=== PATIENT | female | born 1995 | race Caucasian/White ===

== ENCOUNTER 2016-12-09 20:47 | Inpatient (IN) | payer MEDICAID ==
[2016-12-09] MEDS ORDERED: Nalbuphine 10 MG/1 ML Vial IVPUSH PRN (21:52)
[2016-12-09] MEDS ORDERED: Oxytocin 10 Units/1 ML SDV IM ONE (21:52)
[2016-12-09] MEDS ORDERED: Ondansetron 4 MG/2 ML SDV IV PRN (21:52)
[2016-12-09] MEDS ORDERED: fentaNYL 100 MCG/2 ML SDV IVPUSH PRN (21:52)
[2016-12-09] MEDS ORDERED: Lactated Ringers 500 ML IV ONE (21:52)
[2016-12-09] MEDS ORDERED: Methylergonovine 0.2 MG/1 ML Amp IM PRN (21:52)
[2016-12-09] MEDS ORDERED: Misoprostol 400 MCG (4 X 100 MCG TAB) RECTAL PRN (21:52)
[2016-12-09] MEDS ORDERED: Acetaminophen 325 MG Tab PO PRN (21:52)
[2016-12-09] MEDS ORDERED: Carboprost Tromethamine 250 MCG/1 ML Amp IM PRN (21:52)
[2016-12-09] MEDS ORDERED: Lidocaine 1% 30 ML SDV INJECT PRN (21:52)
[2016-12-09] MEDS ORDERED: Sodium Chloride 0.9% 10 ML Syringe FLUSH PRN (21:52)
[2016-12-09] MEDS ORDERED: Lactated Ringers 1,000 ML IV SCH (22:00)
[2016-12-09] MEDS ORDERED: Oxytocin/Normal Saline 30 UNIT/500 ML BAG IV SCH (22:00)
--- NOTE | 2016-12-09 22:06 | PCM.LDHP ---
L&D History of Present Illness - General Date of Service: 12/09/16 Admit Problem/Dx: Patient Status Order with Admit Dx/Problem 12/09/16 21:52 Patient Status [ADT] Routine Admission Diagnosis/Problem Admission Diagnosis/Problem care Source of Information: Patient History Limitations: Reports: No Limitations - Related Data Allergies/Adverse Reactions: Allergies Allergy/AdvReac Type Severity Reaction Status Date / Time albuterol Allergy Dizziness Verified 11/23/16 21:39 benzoyl peroxide Allergy Itching Verified 11/23/16 21:39 fluoxetine [From Prozac] Allergy Tremors Verified 11/23/16 21:39 milk Allergy Indigestion Verified 11/23/16 21:39 penicillin Allergy Other Verified 11/13/16 17:45 Home Medications: Home Meds Pnv95/Iron Fum/Folic Acid [ Caplet] 1 tab PO DAILY 07/08/16 [History] Budesonide/Formoterol Fumarate [Symbicort 160-4.5 Mcg Inhaler] 1 puff IH ASDIRECTED PRN 11/23/16 [History] Levalbuterol Tartrate [Xopenex Hfa] 45 mcg INH ASDIRECTED PRN 11/23/16 [History] hydrOXYzine Pamoate [Hydroxyzine Pamoate] 25 mg PO Q6HR PRN 11/23/16 [History] Past Medical History - Past Health History Medical/Surgical History: Denies Medical/Surgical History HEENT History: Reports: Allergic Rhinitis Other HEENT History: due to animal hair and dander Respiratory History: Reports: Asthma Genitourinary History: Reports: UTI, Recurrent, 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) Other Genitourinary History: hx bv 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: , 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 , 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) Other OB/BYN History: pre term labor Psychiatric History: Reports: OCD, Panic Attack, 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) 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 Dermatologic History: Reports: 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) Other Dermatologic History: alopecia - Infectious Disease History Infectious Disease History: Reports: Chicken Pox - Past Surgical History HEENT Surgical History: Reports: None Respiratory Surgical History: Reports: None Female Surgical History: Reports: None Social & Family History - Family History Family Medical History: Noncontributory - Tobacco Use Smoking Status *Q: Never Smoker Second Hand Smoke Exposure: No - Caffeine Use Caffeine Use: Reports: None - Recreational Drug Use Recreational Drug Use: No L&D Exam - Vital Signs Weight: 68.946 kg - Problem List (1) care in third trimester SNOMED Code(s): 304705741, 27038217, 27283234, 258325856, [id number] ICD Code: Z34.93 - ENCNTR FOR SUPRVSN OF NORMAL PREG, UNSP, THIRD TRIMESTER Status: Acute Current Visit: Yes Problem List Initiated/Reviewed/Updated: Yes Orders Last 24hrs: Active Orders 24 hr Category Date Time Status Patient Status [ADT] Routine ADT 12/09/16 21:52 Ordered Communication Order [RC] ASDIRECTED Care 12/09/16 21:52 Ordered Heart Tones [RC] PER UNIT ROUTINE Care 12/09/16 21:52 Ordered Notify Provider Vital Signs OB [RC] ASDIRECTED Care 12/09/16 21:52 Ordered Notify Provider [RC] PRN Care 12/09/16 21:52 Ordered Pump Management, Intrathecal [RC] ASDIRECTED Care 12/09/16 21:52 Ordered Up ad Hannah [RC] ASDIRECTED Care 12/09/16 21:52 Ordered Vital Signs [RC] PER UNIT ROUTINE Care 12/09/16 21:52 Ordered Clear Liquid Diet [DIET] Diet 12/09/16 Breakfast Ordered CBC W/O DIFF,HEMOGRAM [HEME] Routine Lab 12/09/16 21:42 Ordered Acetaminophen [Tylenol] Med 12/09/16 21:52 Ordered 650 mg PO Q4H PRN Carboprost Tromethamine [Hemabate DS] Med 12/09/16 21:52 Ordered 250 mcg IM ASDIRECTED PRN Lactated Ringers @ 125 MLS/HR(1000ml) Med 12/09/16 22:00 Ordered Lactated Ringers [Ringers, Lactated] 1,000 ml IV ASDIRECTED Lactated Ringers [Ringers, Lactated] 500 ml Med 12/09/16 21:52 Ordered IV .BOLUS Lidocaine 1% [Xylocaine-MPF 1%] Med 12/09/16 21:52 Ordered 10 ml INJECT ASDIRECTED PRN Methylergonovine [Methergine] Med 12/09/16 21:52 Ordered 0.2 mg IM ASDIRECTED PRN Misoprostol [Cytotec] Med 12/09/16 21:52 Ordered 800 mcg RECTAL ASDIRECTED PRN Nalbuphine [Nubain] Med 12/09/16 21:52 Ordered 10 mg IVPUSH Q3H PRN Ondansetron [Zofran] Med 12/09/16 21:52 Ordered 4 mg IV Q4H PRN Oxytocin 30 Units in NS @ 2 MUNITS/MIN(500ml) Med 12/09/16 22:00 Ordered Oxytocin/Normal Saline [Pitocin in NS 30 UNIT/500 ML] 30 unit in 500 ml IV TITRATE Oxytocin [Pitocin] Med 12/09/16 21:52 Once 10 unit IM ONETIME ONE Sodium Chloride 0.9% [Saline Flush] Med 12/09/16 21:52 Ordered 10 ml FLUSH ASDIRECTED PRN fentaNYL [Sublimaze] Med 12/09/16 21:52 Ordered 50 mcg IVPUSH Q1H PRN Saline Lock Insert [OM.PC] Routine Oth 12/09/16 21:52 Ordered Resuscitation Status Routine Resus Stat 12/09/16 21:52 Ordered Medication Orders Acetaminophen (Tylenol) 650 mg PO Q4H PRN PRN Reason: Pain (Mild 1-3) and fever Carboprost Tromethamine (Hemabate Ds) 250 mcg IM ASDIRECTED PRN PRN Reason: HEMORRHAGE Lactated Ringer's (Ringers, Lactated) 500 mls @ 999 mls/hr IV .BOLUS ONE Stop: 12/09/16 22:22 Lactated Ringer's (Ringers, Lactated) 1,000 mls @ 125 mls/hr IV ASDIRECTED ANTONIA Lidocaine HCl (Xylocaine-Mpf 1%) 10 ml INJECT ASDIRECTED PRN PRN Reason: Perineal Repair Methylergonovine Maleate (Methergine) 0.2 mg IM ASDIRECTED PRN PRN Reason: Hemorrhage Misoprostol (Cytotec) 800 mcg RECTAL ASDIRECTED PRN PRN Reason: Hemorrhage Nalbuphine HCl (Nubain) 10 mg IVPUSH Q3H PRN PRN Reason: Pain (moderate 4-6) Ondansetron HCl (Zofran) 4 mg IV Q4H PRN PRN Reason: Nausea/Vomiting Oxytocin (Pitocin) 10 unit IM ONETIME ONE Stop: 12/09/16 21:53 Sodium Chloride (Saline Flush) 10 ml FLUSH ASDIRECTED PRN PRN Reason: Keep Vein Open
--- NOTE | 2016-12-09 22:17 | PCM.LDHP ---
L&D History of Present Illness - General Date of Service: 12/09/16 Admit Problem/Dx: Patient Status Order with Admit Dx/Problem 12/09/16 21:52 Patient Status [ADT] Routine Admission Diagnosis/Problem Admission Diagnosis/Problem care Source of Information: Patient History Limitations: Reports: No Limitations - History of Present Illness Introduction:: 21-year-old at 38w3d presents with leaking of fluid. Patient was at [facility] less than an hour prior to admission and noted a small gush of fluid. She continues to leak. She also feels that her contractions have increased in frequency. They are not too painful at this time. She has had some blood- tinged discharge as well but no overt bleeding. Baby has been active. No new headaches or vision changes. - Related Data Allergies/Adverse Reactions: Allergies Allergy/AdvReac Type Severity Reaction Status Date / Time albuterol Allergy Dizziness Verified 11/23/16 21:39 benzoyl peroxide Allergy Itching Verified 11/23/16 21:39 fluoxetine [From Prozac] Allergy Tremors Verified 11/23/16 21:39 milk Allergy Indigestion Verified 11/23/16 21:39 penicillin Allergy Other Verified 11/13/16 17:45 Home Medications: Home Meds Pnv95/Iron Fum/Folic Acid [ Caplet] 1 tab PO DAILY 07/08/16 [History] Budesonide/Formoterol Fumarate [Symbicort 160-4.5 Mcg Inhaler] 1 puff IH ASDIRECTED PRN 11/23/16 [History] Levalbuterol Tartrate [Xopenex Hfa] 45 mcg INH ASDIRECTED PRN 11/23/16 [History] hydrOXYzine Pamoate [Hydroxyzine Pamoate] 25 mg PO Q6HR PRN 11/23/16 [History] Past Medical History - Past Health History Medical/Surgical History: Denies Medical/Surgical History HEENT History: Reports: Allergic Rhinitis Other HEENT History: due to animal hair and dander Respiratory History: Reports: Asthma Genitourinary History: Reports: UTI, Recurrent, 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) Other Genitourinary History: 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: , 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 , 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) Other OB/BYN History: pre term labor Psychiatric History: Reports: OCD, Panic Attack, 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) 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 Dermatologic History: Reports: 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) Other Dermatologic History: alopecia - Infectious Disease History Infectious Disease History: Reports: Chicken Pox - Past Surgical History HEENT Surgical History: Reports: None Respiratory Surgical History: Reports: None Female Surgical History: Reports: None Social & Family History - Family History Family Medical History: Noncontributory - Tobacco Use Smoking Status *Q: Never Smoker Second Hand Smoke Exposure: No - Caffeine Use Caffeine Use: Reports: None - Recreational Drug Use Recreational Drug Use: No H&P Review of Systems - Review of Systems: Review Of Systems: See Below General: Reports: No Symptoms HEENT: Reports: No Symptoms Pulmonary: Reports: No Symptoms Cardiovascular: Reports: No Symptoms Gastrointestinal: Reports: No Symptoms Genitourinary: Reports: No Symptoms Musculoskeletal: Reports: No Symptoms L&D Exam - Exam Exam: See Below - Vital Signs Weight: 68.946 kg - OB Specific Contraction Duration (sec): 45 Contraction Frequency (min): 1-2 Contraction Intensity: Mild Movement: Active Heart Tones: Present Heart Tones per Min: 130 Heart Rate (FHR) Variability: Moderate (6-25 bmp) Presentation: Vertex - King Score King Score Cervix Position: Anterior King Score Consistency: Soft King Score Effacement: >80% King Score Dilation: > 5 cm King Score Infant's Station: -1 ,0 King Score Total: 12 - Exam General: Alert, Oriented HEENT: Conjunctiva Clear, Mucosa Moist & [place], Posterior Pharynx Clear Lungs: Clear to Auscultation, Normal Respiratory Effort Cardiovascular: Regular Rate, Regular Rhythm. No: Systolic Murmur, Diastolic Murmur Genitourinary: Normal external exam Extremities: Normal Inspection. No: Edema Skin: Warm, Dry, Intact Psychiatric: Alert - Patient Data Lab Results Last 24 hrs: Laboratory Results - last 24 hr 12/09/16 Range/Units 22:00 WBC 13.5 H (5.0-10.0) 10^3/uL RBC 3.78 L (4.2-5.4) 10^6/uL Hgb 11.6 L (12.0-16.0) g/dL Hct 34.8 L (37.0-47.0) % MCV 92.1 (80-100) fL MCH 30.7 (27.0-34.0) pg MCHC 33.3 (33.0-35.0) g/dL Plt Count 204 (150-450) 10^3/uL Result Diagrams: 12/09/16 22:00 - Problem List (1) care in third trimester SNOMED Code(s): 178166163, 26694386, 62348441, 755445799, 472972201 ICD Code: Z34.93 - ENCNTR FOR SUPRVSN OF NORMAL PREG, UNSP, THIRD TRIMESTER Status: Acute Current Visit: Yes Problem List Initiated/Reviewed/Updated: Yes Orders Last 24hrs: Active Orders 24 hr Category Date Time Status Patient Status [ADT] Routine ADT 12/09/16 21:52 Active Communication Order [RC] ASDIRECTED Care 12/09/16 21:52 Active Heart Tones [RC] PER UNIT ROUTINE Care 12/09/16 21:52 Active Notify Provider Vital Signs OB [RC] ASDIRECTED Care 12/09/16 21:52 Active Notify Provider [RC] PRN Care 12/09/16 21:52 Active Pump Management, Intrathecal [RC] ASDIRECTED Care 12/09/16 21:52 Active Up ad Hannah [RC] ASDIRECTED Care 12/09/16 21:52 Active Vital Signs [RC] PER UNIT ROUTINE Care 12/09/16 21:52 Active Clear Liquid Diet [DIET] Diet 12/09/16 Breakfast Active Acetaminophen [Tylenol] Med 12/09/16 21:52 Active 650 mg PO Q4H PRN Carboprost Tromethamine [Hemabate DS] Med 12/09/16 21:52 Active 250 mcg IM ASDIRECTED PRN Lactated Ringers [Ringers, Lactated] 1,000 ml Med 12/09/16 22:00 Active IV ASDIRECTED Lactated Ringers [Ringers, Lactated] 500 ml Med 12/09/16 21:52 Active IV .BOLUS Lidocaine 1% [Xylocaine-MPF 1%] Med 12/09/16 21:52 Active 10 ml INJECT ASDIRECTED PRN Methylergonovine [Methergine] Med 12/09/16 21:52 Active 0.2 mg IM ASDIRECTED PRN Misoprostol [Cytotec] Med 12/09/16 21:52 Active 800 mcg RECTAL ASDIRECTED PRN Nalbuphine [Nubain] Med 12/09/16 21:52 Active 10 mg IVPUSH Q3H PRN Ondansetron [Zofran] Med 12/09/16 21:52 Active 4 mg IV Q4H PRN Oxytocin/Normal Saline [Pitocin in NS 30 UNIT/500 ML] Med 12/09/16 22:00 Active 30 unit in 500 ml IV TITRATE Sodium Chloride 0.9% [Saline Flush] Med 12/09/16 21:52 Active 10 ml FLUSH ASDIRECTED PRN fentaNYL [Sublimaze] Med 12/09/16 21:52 Active 50 mcg IVPUSH Q1H PRN Saline Lock Insert [OM.PC] Routine Oth 12/09/16 21:52 Ordered Resuscitation Status Routine Resus Stat 12/09/16 21:52 Ordered Medication Orders Acetaminophen (Tylenol) 650 mg PO Q4H PRN PRN Reason: Pain (Mild 1-3) and fever Carboprost Tromethamine (Hemabate Ds) 250 mcg IM ASDIRECTED PRN PRN Reason: HEMORRHAGE Fentanyl (Sublimaze) 50 mcg IVPUSH Q1H PRN PRN Reason: Pain (moderate 4-6) Lactated Ringer's (Ringers, Lactated) 500 mls @ 999 mls/hr IV .BOLUS ONE Stop: 12/09/16 22:22 Lactated Ringer's (Ringers, Lactated) 1,000 mls @ 125 mls/hr IV ASDIRECTED ANTONIA Oxytocin/Sodium Chloride (Pitocin In Ns 30 Unit/500 Ml) 30 unit in 500 mls @ 2 mls/hr IV TITRATE ANTONIA; 2 MUNITS/MIN PRN Reason: Protocol Lidocaine HCl (Xylocaine-Mpf 1%) 10 ml INJECT ASDIRECTED PRN PRN Reason: Perineal Repair Methylergonovine Maleate (Methergine) 0.2 mg IM ASDIRECTED PRN PRN Reason: Hemorrhage Misoprostol (Cytotec) 800 mcg RECTAL ASDIRECTED PRN PRN Reason: Hemorrhage Nalbuphine HCl (Nubain) 10 mg IVPUSH Q3H PRN PRN Reason: Pain (moderate 4-6) Ondansetron HCl (Zofran) 4 mg IV Q4H PRN PRN Reason: Nausea/Vomiting Sodium Chloride (Saline Flush) 10 ml FLUSH ASDIRECTED PRN PRN Reason: Keep Vein Open Assessment/Plan Comment:: 21-year-old at 38w3d with active labor and SROM 1. Admit to L&D 2. Initiate routine intrapartum orders 3. Patient does NOT desire an intratheca. 4. Patient's cervix was assessed by me. A bag was felt and AROM'd for small clear fluid. 5. Expectant management. Anticipate Geeta Ambriz MD
[2016-12-09] MEDS ORDERED: Docusate Sodium 100 MG Cap PO PRN (23:40)
[2016-12-09] MEDS ORDERED: Benzocaine/Menthol 20%-0.5% Spray 56 GM Canister TOP PRN (23:40)
[2016-12-09] MEDS ORDERED: Simethicone 80 MG Tab.Chew PO PRN (23:40)
--- NOTE | 2016-12-09 23:48 | PCM.DEL ---
L & D Note - General Info Date of Service: 12/09/16 Mother's Due Date: 12/19/16 - Delivery Note Labor: spontaneous, augmented by ARM Delivery Outcome: Livebirth Delivery Method: Spontaneous Vaginal Delivery Presentation: Vertex Nuchal Cord: None Anesthesia Type: None Amniotic Fluid Description: Clear Episiotomy Type: None Laceration: none Placenta: intact, spontaneous Cord: 3 vessels Estimated Blood Loss: 225 Resuscitation Needed: No : Stimulated, Warmed Score 1 min: 8 Score 5 min: 9 Delivery Comments (Free Text/Narrative):: 21-year-old now at 38w3d gestation presented with leaking of amniotic fluid and increased contractions. She was admitted and AROM was performed around 2210. Patient rapidly progressed to complete dilation. She was in the tub and was quickly moved from the tub to the bed. She was involuntarily pushing. The baby delivered as I was entering the labor room. Female infant was placed on mother's chest and warmed/stimulated. Apgars were 8 and 9 at 1 and 5 minutes respectively. The cord was cut and clamped. The placenta delivered spontaneously about 5 minutes later. Initially, there was some brisk bleeding from the uterus. Vigorous uterine massage and intiation of pitocin slowed this bleeding to an appropriate level. Perineum was intact. Patient tolerated the procedure well, and there were no immediately complications. Geeta Ambriz MD - Patient Data Weight - most recent: 68.946 kg Lab Results last 24 hrs: Laboratory Results - last 24 hr 12/09/16 Range/Units 22:00 WBC 13.5 H (5.0-10.0) 10^3/uL RBC 3.78 L (4.2-5.4) 10^6/uL Hgb 11.6 L (12.0-16.0) g/dL Hct 34.8 L (37.0-47.0) % MCV 92.1 (80-100) fL MCH 30.7 (27.0-34.0) pg MCHC 33.3 (33.0-35.0) g/dL Plt Count 204 (150-450) 10^3/uL Med Orders - Current: Current Medications Acetaminophen (Tylenol) 650 mg PO Q4H PRN PRN Reason: Pain (Mild 1-3) and fever Carboprost Tromethamine (Hemabate Ds) 250 mcg IM ASDIRECTED PRN PRN Reason: HEMORRHAGE Oxytocin/Sodium Chloride (Pitocin In Ns 30 Unit/500 Ml) 30 unit in 500 mls @ 2 mls/hr IV TITRATE ANTONIA; 2 MUNITS/MIN PRN Reason: Protocol Methylergonovine Maleate (Methergine) 0.2 mg IM ASDIRECTED PRN PRN Reason: Hemorrhage Misoprostol (Cytotec) 800 mcg RECTAL ASDIRECTED PRN PRN Reason: Hemorrhage Ondansetron HCl (Zofran) 4 mg IV Q4H PRN PRN Reason: Nausea/Vomiting Sodium Chloride (Saline Flush) 10 ml FLUSH ASDIRECTED PRN PRN Reason: Keep Vein Open Discontinued Medications Fentanyl (Sublimaze) 50 mcg IVPUSH Q1H PRN PRN Reason: Pain (moderate 4-6) Lactated Ringer's (Ringers, Lactated) 500 mls @ 999 mls/hr IV .BOLUS ONE Stop: 12/09/16 22:22 Lactated Ringer's (Ringers, Lactated) 1,000 mls @ 125 mls/hr IV ASDIRECTED ANTONIA Lidocaine HCl (Xylocaine-Mpf 1%) 10 ml INJECT ASDIRECTED PRN PRN Reason: Perineal Repair Nalbuphine HCl (Nubain) 10 mg IVPUSH Q3H PRN PRN Reason: Pain (moderate 4-6) Oxytocin (Pitocin) 10 unit IM ONETIME ONE Stop: 12/09/16 21:53 - Problem List & Annotations (1) care in third trimester SNOMED Code(s): 965910128, 54771888, 03204143, 411053709, 044874926 Code(s): Z34.93 - ENCNTR FOR SUPRVSN OF NORMAL PREG, UNSP, THIRD TRIMESTER Status: Acute Current Visit: Yes (2) (normal spontaneous vaginal delivery) SNOMED Code(s): 86203627 Code(s): O80 - ENCOUNTER FOR FULL-TERM UNCOMPLICATED DELIVERY Status: Acute Current Visit: Yes (3) Precipitous delivery, delivered (current hospitalization) SNOMED Code(s): 296509457 Code(s): O62.3 - PRECIPITATE LABOR Status: Acute Current Visit: Yes - Problem List Review Problem List Initiated/Reviewed/Updated: Yes - My Orders Last 24 Hours: My Active Orders 12/09/16 21:52 Patient Status [ADT] Routine Notify Provider Vital Signs OB [RC] ASDIRECTED Pump Management, Intrathecal [RC] ASDIRECTED Vital Signs [RC] 08,20 Acetaminophen [Tylenol] 650 mg PO Q4H PRN Carboprost Tromethamine [Hemabate DS] 250 mcg IM ASDIRECTED PRN Methylergonovine [Methergine] 0.2 mg IM ASDIRECTED PRN Misoprostol [Cytotec] 800 mcg RECTAL ASDIRECTED PRN Ondansetron [Zofran] 4 mg IV Q4H PRN Sodium Chloride 0.9% [Saline Flush] 10 ml FLUSH ASDIRECTED PRN Saline Lock Insert [OM.PC] Routine Resuscitation Status Routine 12/09/16 22:00 Oxytocin/Normal Saline [Pitocin in NS 30 UNIT/500 ML] 30 unit in 500 ml IV TITRATE 12/09/16 23:40 Up ad Hannah [RC] ASDIRECTED Vital Signs [RC] PFP Consult to Health Information Technician [CONS] Routine Benzocaine/Menthol [Dermoplast Pain Relief [place]] See Dose Instructions TOP Q4H PRN Docusate Sodium [Colace] 100 mg PO BID PRN Ibuprofen [Motrin] 800 mg PO Q8H PRN Simethicone 80 mg PO Q4H PRN Assess Lochia [WOMSER] Per Unit Routine Assess Uterine Involution [WOMSER] Per Unit Routine Breast Pump [WOMSER] Per Unit Routine Ice Therapy [OM.PC] Per Unit Routine Perineal Care [OM.PC] Per Unit Routine Sitz Bath [OM.PC] Per Unit Routine 12/09/16 Breakfast Regular Diet [DIET] 12/10/16 09:00 Vit with Ca/FA/Iron [ Plus Iron] 1 each PO DAILY - Assessment Assessment:: 21-year-old now status post precipitous at 38w3d - Plan Plan:: 1. Initiate routine cares 2. Plans to breastfeed-- consult placed 3. Anticipate discharge 12/11/16 Geeta Ambriz MD
[2016-12-10] MEDS: Ibuprofen 800 MG Tab PO PRN ×2 (01:59→09:38)
[2016-12-10] MEDS: Prenatal Multivitamin with Calcium/Folic Acid/Iron Tab PO SCH (09:38)
--- NOTE | 2016-12-10 17:12 | PCM.PNPP ---
- General Info Date of Service: 12/10/16 Subjective Update: 21-year-old now day #1 status post precipitous normal spontaneous vaginal delivery. Patient is doing well. She complains of some perineal discomfort but is otherwise doing well. Bleeding is slowing down. She is tolerating a general diet. She is ambulatory without difficulty. She is voiding. She has not had a bowel movement. No fevers or chills. She is breast- feeding. No concerns today. Patient did have some increased bleeding overnight approximately 2 hours after delivery. IV Pitocin was increased and prolonged for an extra hour. Her bleeding was appropriate after that. No increased bleeding since that time. Functional Status: Reports: pain controlled, tolerating diet, ambulating, urinating - Review of Systems General: Reports: No Symptoms HEENT: Reports: no symptoms Pulmonary: Reports: no symptoms Cardiovascular: Reports: No Symptoms Gastrointestinal: Reports: No symptoms Genitourinary: Reports: pain Musculoskeletal: Reports: no symptoms Skin: Reports: no symptoms Neurological: Reports: No Symptoms - General Info Date of Service: 12/17/16 - Patient Data Vital Signs - most recent: Last Vital Signs Temp 36.4 C 12/10/16 08:00 Pulse 76 12/10/16 08:00 Resp 18 12/10/16 08:00 BP 113/56 L 12/10/16 08:00 Pulse Ox 96 12/10/16 08:00 Weight - most recent: 68.946 kg I&O - last 24 hours: Intake & Output 12/10/16 12/10/16 12/10/16 06:59 14:59 22:59 Intake Total 80 Balance 80 Lab Results - last 24 hrs: Laboratory Results - last 24 hr 12/09/16 Range/Units 22:00 WBC 13.5 H (5.0-10.0) 10^3/uL RBC 3.78 L (4.2-5.4) 10^6/uL Hgb 11.6 L (12.0-16.0) g/dL Hct 34.8 L (37.0-47.0) % MCV 92.1 (80-100) fL MCH 30.7 (27.0-34.0) pg MCHC 33.3 (33.0-35.0) g/dL Plt Count 204 (150-450) 10^3/uL Med Orders - Current: Current Medications Acetaminophen (Tylenol) 650 mg PO Q4H PRN PRN Reason: Pain (Mild 1-3) and fever Benzocaine/Menthol (Dermoplast Pain Relief [place]) 0 gm TOP Q4H PRN PRN Reason: Perineal comfort measures Carboprost Tromethamine (Hemabate Ds) 250 mcg IM ASDIRECTED PRN PRN Reason: HEMORRHAGE Docusate Sodium (Colace) 100 mg PO BID PRN PRN Reason: Constipation Last Admin: 12/10/16 09:38 Dose: 100 mg Oxytocin/Sodium Chloride (Pitocin In Ns 30 Unit/500 Ml) 30 unit in 500 mls @ 2 mls/hr IV TITRATE ANTONIA; 2 MUNITS/MIN PRN Reason: Protocol Last Titration: 12/10/16 02:45 Dose: Infused Ibuprofen (Motrin) 800 mg PO Q8H PRN PRN Reason: Mild Pain or Fever Last Admin: 12/10/16 09:38 Dose: 800 mg Methylergonovine Maleate (Methergine) 0.2 mg IM ASDIRECTED PRN PRN Reason: Hemorrhage Misoprostol (Cytotec) 800 mcg RECTAL ASDIRECTED PRN PRN Reason: Hemorrhage Ondansetron HCl (Zofran) 4 mg IV Q4H PRN PRN Reason: Nausea/Vomiting Prenat Multivit/[place]ole/Iron/Folic Ac ( Plus Iron) 1 each PO DAILY ANTONIA Last Admin: 12/10/16 09:38 Dose: 1 each Simethicone (Simethicone) 80 mg PO Q4H PRN PRN Reason: Gas Sodium Chloride (Saline Flush) 10 ml FLUSH ASDIRECTED PRN PRN Reason: Keep Vein Open Discontinued Medications Fentanyl (Sublimaze) 50 mcg IVPUSH Q1H PRN PRN Reason: Pain (moderate 4-6) Lactated Ringer's (Ringers, Lactated) 500 mls @ 999 mls/hr IV .BOLUS ONE Stop: 12/09/16 22:22 Last Admin: 12/10/16 05:53 Dose: Not Given Lactated Ringer's (Ringers, Lactated) 1,000 mls @ 125 mls/hr IV ASDIRECTED ANTONIA Last Admin: 12/09/16 23:20 Dose: 125 mls/hr Lidocaine HCl (Xylocaine-Mpf 1%) 10 ml INJECT ASDIRECTED PRN PRN Reason: Perineal Repair Nalbuphine HCl (Nubain) 10 mg IVPUSH Q3H PRN PRN Reason: Pain (moderate 4-6) Oxytocin (Pitocin) 10 unit IM ONETIME ONE Stop: 12/09/16 21:53 Last Admin: 12/10/16 01:20 Dose: Not Given - Interaction Infant Disposition, : in Room with Family Interaction: Holding Infant Infant Feeding: Breastfed ; Nursed Well Support Person: Significant Other - Recovery Exam Fundal Tone: Firm Fundal Level: 1 Fingerbreadths Below Umbilicus Fundal Placement: Midline Lochia Amount: Scant, Small Lochia Color: Rubra/Red Perineum Description: Intact, Minimal Bruising/Swelling Episiotomy/Laceration: None Bladder Status: Voiding - Exam General: alert, oriented HEENT: Pupils equal Lungs: Clear to auscultation, Normal respiratory effort Cardiovascular: Regular Rate, Regular Rhythm, No Murmurs Abdomen: bowel sounds present, soft, no tenderness Extremities: no edema Skin: warm, dry, intact - Problem List & Annotations (1) care in third trimester SNOMED Code(s): 255496612, 08341146, 64749520, 072691902, 503732029 Code(s): Z34.93 - ENCNTR FOR SUPRVSN OF NORMAL PREG, UNSP, THIRD TRIMESTER Status: Acute (2) (normal spontaneous vaginal delivery) SNOMED Code(s): 81902728 Code(s): O80 - ENCOUNTER FOR FULL-TERM UNCOMPLICATED DELIVERY Status: Acute (3) Precipitous delivery, delivered (current hospitalization) SNOMED Code(s): 292854288 Code(s): O62.3 - PRECIPITATE LABOR Status: Acute - Problem List Review Problem List Initiated/Reviewed/Updated: Yes - My Orders Last 24 Hours: My Active Orders 12/09/16 21:52 Patient Status [ADT] Routine Pump Management, Intrathecal [RC] ASDIRECTED Vital Signs [RC] 08,20 Acetaminophen [Tylenol] 650 mg PO Q4H PRN Carboprost Tromethamine [Hemabate DS] 250 mcg IM ASDIRECTED PRN Methylergonovine [Methergine] 0.2 mg IM ASDIRECTED PRN Misoprostol [Cytotec] 800 mcg RECTAL ASDIRECTED PRN Ondansetron [Zofran] 4 mg IV Q4H PRN Sodium Chloride 0.9% [Saline Flush] 10 ml FLUSH ASDIRECTED PRN Saline Lock Insert [OM.PC] Routine Resuscitation Status Routine 12/09/16 22:00 Oxytocin/Normal Saline [Pitocin in NS 30 UNIT/500 ML] 30 unit in 500 ml IV TITRATE 12/09/16 23:40 Up ad Hannah [RC] ASDIRECTED Consult to Floral Department Specialist [CONS] Routine Benzocaine/Menthol [Dermoplast Pain Relief [place]] See Dose Instructions TOP Q4H PRN Docusate Sodium [Colace] 100 mg PO BID PRN Ibuprofen [Motrin] 800 mg PO Q8H PRN Simethicone 80 mg PO Q4H PRN Assess Lochia [WOMSER] Per Unit Routine Assess Uterine Involution [WOMSER] Per Unit Routine Breast Pump [WOMSER] Per Unit Routine Ice Therapy [OM.PC] Per Unit Routine Perineal Care [OM.PC] Per Unit Routine Sitz Bath [OM.PC] Per Unit Routine 12/10/16 09:00 Vit with Ca/FA/Iron [ Plus Iron] 1 each PO DAILY - Assessment Assessment:: 21-year-old now day #1 status post precipitous at 38w3d - Plan Plan:: 1. Continue routine cares 2. Plans to breastfeed-- consult placed 3. Anticipate discharge 12/11/16 Geeta Ambriz MD
[2016-12-11] MEDS: Ibuprofen 800 MG Tab PO PRN ×2 (00:27→10:20)
[2016-12-11 07:09] VITALS: BP 97/58
[2016-12-11] MEDS: Prenatal Multivitamin with Calcium/Folic Acid/Iron Tab PO SCH (09:56)
--- NOTE | 2016-12-11 10:24 | PCM.DCSUM1 ---
Discharge Summary - Hospital Course Free Text/Narrative:: 21-year-old status post precipitous normal spontaneous vaginal delivery - Discharge Data Discharge Date: 12/11/16 Discharge Disposition: Home, Self-Care 01 Condition: Good - Discharge Diagnosis/Problem(s) (1) care in third trimester SNOMED Code(s): 735305325, 49321000, 21865549, 408915017, 726378090 ICD Code: Z34.93 - ENCNTR FOR SUPRVSN OF NORMAL PREG, UNSP, THIRD TRIMESTER Status: Acute (2) (normal spontaneous vaginal delivery) SNOMED Code(s): 27682704 ICD Code: O80 - ENCOUNTER FOR FULL-TERM UNCOMPLICATED DELIVERY Status: Acute (3) Precipitous delivery, delivered (current hospitalization) SNOMED Code(s): 134192055 ICD Code: O62.3 - PRECIPITATE LABOR Status: Acute - Patient Summary/Data Operative Procedure(s) Performed: None Complications: None Consults: Consultations 12/09/16 23:40 Consult to Assembler Faucets [CONS] Routine Labs Pending at D/C: None Recommended Follow-up Testing/Procedures: None Planned Operative Procedure(s) after DC: None Hospital Course: Unremarkable (please see subjective section for details) - Patient Instructions Diet: Usual Diet as Tolerated Activity: As Tolerated Driving: May Drive Today Showering/Bathing: May Shower Notify Provider of: Fever, Increased Pain, Swelling and Redness, Nausea and/or Vomiting - Discharge Plan Home Medications: Home Meds Pnv95/Iron Fum/Folic Acid [ Caplet] 1 tab PO DAILY 07/08/16 [History] Budesonide/Formoterol Fumarate [Symbicort 160-4.5 Mcg Inhaler] 1 puff IH ASDIRECTED PRN 11/23/16 [History] Levalbuterol Tartrate [Xopenex Hfa] 45 mcg INH ASDIRECTED PRN 11/23/16 [History] Ferrous Sulfate [Iron] 325 mg PO DAILY 12/09/16 [History] Acetaminophen [Tylenol] 650 mg PO Q4H PRN #0 tablet 12/11/16 [Rx] Docusate Sodium [Colace] 100 mg PO BID PRN #0 cap 12/11/16 [Rx] Ibuprofen [IJD: Ibuprofen] 800 mg PO Q8H PRN #0 tablet 12/11/16 [Rx] Patient Handouts: Depression and Baby Blues, Home Care Instructions for Mom, Vaginal Delivery, Care After, Care After Vaginal Delivery - Discharge Summary/Plan Comment DC Time >30 min.: No Discharge Summary/Plan Comment: Patient discharged home today. Follow-up in 6 weeks for routine check. Reasons to return sooner were discussed with the patient, and all questions were answered. Geeta Ambriz MD - General Info Subjective Update: 21-year-old now day #2 status post precipitous normal spontaneous vaginal delivery. Patient is doing well. Perineal pain has improved. Bleeding is slowing down. She is tolerating a general diet. She is ambulatory without difficulty. She is voiding. She has not had a bowel movement. No fevers or chills. She is breast-feeding. No concerns today. Functional Status: Reports: pain controlled, tolerating diet, ambulating, urinating - Review of Systems General: Reports: No Symptoms HEENT: Reports: no symptoms Pulmonary: Reports: no symptoms Cardiovascular: Reports: No Symptoms Gastrointestinal: Reports: No symptoms Genitourinary: Reports: no symptoms Musculoskeletal: Reports: no symptoms - Patient Data Vitals - Most Recent: Last Vital Signs Temp 36.5 C 12/11/16 07:08 Pulse 67 12/11/16 07:08 Resp 16 12/11/16 07:08 BP 97/58 L 12/11/16 07:08 Pulse Ox 99 12/11/16 07:08 Weight - Most Recent: 68.946 kg Med Orders - Current: Current Medications Acetaminophen (Tylenol) 650 mg PO Q4H PRN PRN Reason: Pain (Mild 1-3) and fever Benzocaine/Menthol (Dermoplast Pain Relief [place]) 0 gm TOP Q4H PRN PRN Reason: Perineal comfort measures Carboprost Tromethamine (Hemabate Ds) 250 mcg IM ASDIRECTED PRN PRN Reason: HEMORRHAGE Docusate Sodium (Colace) 100 mg PO BID PRN PRN Reason: Constipation Last Admin: 12/10/16 09:38 Dose: 100 mg Oxytocin/Sodium Chloride (Pitocin In Ns 30 Unit/500 Ml) 30 unit in 500 mls @ 2 mls/hr IV TITRATE ANTONIA; 2 MUNITS/MIN PRN Reason: Protocol Last Titration: 12/10/16 02:45 Dose: Infused Ibuprofen (Motrin) 800 mg PO Q8H PRN PRN Reason: Mild Pain or Fever Last Admin: 12/11/16 10:20 Dose: 800 mg Methylergonovine Maleate (Methergine) 0.2 mg IM ASDIRECTED PRN PRN Reason: Hemorrhage Misoprostol (Cytotec) 800 mcg RECTAL ASDIRECTED PRN PRN Reason: Hemorrhage Ondansetron HCl (Zofran) 4 mg IV Q4H PRN PRN Reason: Nausea/Vomiting Prenat Multivit/Not[place]/Iron/Folic Ac ( Plus Iron) 1 each PO DAILY [facility] Last Admin: 12/11/16 09:56 Dose: Not Given Simethicone (Simethicone) 80 mg PO Q4H PRN PRN Reason: Gas Sodium Chloride (Saline Flush) 10 ml FLUSH ASDIRECTED PRN PRN Reason: Keep Vein Open Discontinued Medications Fentanyl (Sublimaze) 50 mcg IVPUSH Q1H PRN PRN Reason: Pain (moderate 4-6) Lactated Ringer's (Ringers, Lactated) 500 mls @ 999 mls/hr IV .BOLUS ONE Stop: 12/09/16 22:22 Last Admin: 12/10/16 05:53 Dose: Not Given Lactated Ringer's (Ringers, Lactated) 1,000 mls @ 125 mls/hr IV ASDIRECTED [facility] Last Admin: 12/09/16 23:20 Dose: 125 mls/hr Lidocaine HCl (Xylocaine-Mpf 1%) 10 ml INJECT ASDIRECTED PRN PRN Reason: Perineal Repair Nalbuphine HCl (Nubain) 10 mg IVPUSH Q3H PRN PRN Reason: Pain (moderate 4-6) Oxytocin (Pitocin) 10 unit IM ONETIME ONE Stop: 12/09/16 21:53 Last Admin: 12/10/16 01:20 Dose: Not Given - Exam General: Reports: alert, oriented Lungs: Reports: Clear to auscultation, Normal respiratory effort Cardiovascular: Reports: Regular Rate, Regular Rhythm, No Murmurs Extremities: Reports: no edema Skin: Reports: warm, dry, intact *Q Meaningful Use (DIS) - VTE *Q VTE Criteria *Q: - Stroke *Q Stroke Criteria *Q: - AMI *Q AMI Criteria *Q:
[2016-12-11] MEDS: Acetaminophen/HYDROcodone 325-10 MG Tab PO PRN ×2 (11:12→15:23)
== END 2016-12-11 16:23 | disposition home or self-care (01) | DRG 775 ==
LOC: DL.OBCHECK 20:47 → DL.OB 21:31 → OBSVTOIN 23:24 → DL.OB 23:24
PROVIDERS: ADMIT Family Medicine; ATTEND Family Medicine
PROC: 10E0XZZ Delivery of Products of Conception, External Approach (ICD-10-PCS; principal; 2016-12-09)
PROC: 10907ZC Drainage of Amniotic Fluid, Therapeutic from Products of Conception, Via Natural or Artificial Opening (ICD-10-PCS; 2016-12-09)
DX: O42.02 Full-term premature rupture of membranes, onset of labor within 24 hours of rupture (principal); Z37.0 Single live birth; O62.3 Precipitate labor; Z3A.38 38 weeks gestation of pregnancy; Z88.0 Allergy status to penicillin; Z88.8 Allergy status to other drugs, medicaments and biological substances; Z91.011 Allergy to milk products; O75.89 Other specified complications of labor and delivery; J45.909 Unspecified asthma, uncomplicated; F40.01 Agoraphobia with panic disorder
CPT/HCPCS: 36415; 85027; A9270-GY; J2590; J7120

== ENCOUNTER 2019-05-11 00:32 | Inpatient (IN) | payer MEDICAID ==
[2019-05-11] MEDS ORDERED: Tranexamic Acid 1,000 MG in Sodium Chloride 0.9% 100 ML IV PRN (00:56)
[2019-05-11] MEDS ORDERED: Sodium Chloride 0.9% 10 ML Syringe FLUSH PRN (00:56)
[2019-05-11] MEDS ORDERED: Misoprostol 400 MCG (4 X 100 MCG TAB) RECTAL PRN (00:56)
[2019-05-11] MEDS ORDERED: fentaNYL 100 MCG/2 ML SDV IVPUSH PRN (00:56)
[2019-05-11] MEDS ORDERED: Carboprost Tromethamine 250 MCG/1 ML Amp IM PRN (00:56)
[2019-05-11] MEDS ORDERED: Lactated Ringers 500 ML IV ONE (00:56)
[2019-05-11] MEDS ORDERED: Methylergonovine 0.2 MG/1 ML Amp IM PRN (00:56)
[2019-05-11] MEDS ORDERED: Ondansetron 4 MG/2 ML SDV IV PRN (00:56)
[2019-05-11] MEDS ORDERED: Lidocaine 1% 30 ML SDV INJECT PRN (00:56)
[2019-05-11] MEDS ORDERED: Nalbuphine 10 MG/1 ML Vial IM PRN (00:58)
[2019-05-11] MEDS ORDERED: Nalbuphine 10 MG/1 ML Vial IV PRN (00:58)
[2019-05-11] MEDS ORDERED: Misoprostol 25 MCG (1/4 of 100 MCG) Tab VAG PRN (00:59)
[2019-05-11] MEDS ORDERED: Oxytocin/Normal Saline 30 UNIT/500 ML BAG IV SCH (01:00)
[2019-05-11] MEDS ORDERED: Lactated Ringers 1,000 ML IV SCH (01:00)
[2019-05-11] MEDS ORDERED: hydrOXYzine HCl 25 MG Tab PO PRN (01:20)
[2019-05-11] MEDS ORDERED: Benzocaine/Menthol 20%-0.5% Spray 56 GM Canister TOP PRN (06:48)
[2019-05-11] MEDS ORDERED: Simethicone 80 MG Tab.Chew PO PRN (06:48)
[2019-05-11] MEDS ORDERED: Oxytocin 10 Units/1 ML SDV IM PRN (06:48)
[2019-05-11] MEDS: Prenatal Multivitamin with Calcium/Folic Acid/Iron Tab PO SCH (12:17)
[2019-05-11] MEDS: Ibuprofen 800 MG Tab PO PRN ×2 (13:07→21:51)
[2019-05-11] MEDS: Acetaminophen 325 MG Tab PO PRN (17:26)
[2019-05-11] MEDS: Docusate Sodium 100 MG Cap PO PRN (17:26)
--- NOTE | 2019-05-12 00:45 | PCM.LDHP ---
L&D History of Present Illness - General Date of Service: 05/11/19 Admit Problem/Dx: Patient Status Order with Admit Dx/Problem 05/11/19 00:56 Patient Status [ADT] Routine Admission Diagnosis/Problem Admission Diagnosis/Problem care Source of Information: Patient History Limitations: Reports: No Limitations - History of Present Illness Introduction:: 23-year-old at 39w4d presenting to L&D for elective IOL. Patient has a history of rapid deliveries. She has been feeling well. Some [place] contractions but no regular contractions. Baby has been active. No vaginal bleeding or leaking of fluid. has been complicated only by anemia. She has a history of miscarriage and history of delivery with her first delivery. Pain Score: 3 - Related Data Allergies/Adverse Reactions: Allergies Allergy/AdvReac Type Severity Reaction Status Date / Time albuterol Allergy Dizziness Verified 05/11/19 00:51 benzoyl peroxide Allergy Itching Verified 05/11/19 00:51 fluoxetine [From Prozac] Allergy Tremors Verified 05/11/19 00:51 milk Allergy Indigestion Verified 05/11/19 00:51 penicillin Allergy Other Verified 05/11/19 00:51 Home Medications: Home Meds Pnv95/Iron Fum/Folic Acid [ Caplet] 1 tab PO DAILY 07/08/16 [History] Budesonide/Formoterol Fumarate [Symbicort 160-4.5 Mcg Inhaler] 1 puff IH ASDIRECTED PRN 11/23/16 [History] Levalbuterol Tartrate [Xopenex Hfa] 45 mcg INH ASDIRECTED PRN 11/23/16 [History] Ferrous Sulfate [Iron] 325 mg PO DAILY 12/09/16 [History] Acetaminophen [Tylenol] 650 mg PO Q4H PRN #0 tablet 12/11/16 [Rx] Escitalopram [Lexapro] 20 mg PO DAILY 04/25/19 [History] Past Medical History - Past Health History Medical/Surgical History: Denies Medical/Surgical History HEENT History: Reports: Allergic Rhinitis Other HEENT History: due to animal hair and dander Cardiovascular History: Reports: None Respiratory History: Reports: Asthma Gastrointestinal History: Reports: None Genitourinary History: Reports: UTI, Recurrent, 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) Other Genitourinary History: hx bv HUMAN RESOURCES REPRESENTATIVE History: Reports: , Spontaneous Other OB/BYN History: pre term labor Musculoskeletal History: Reports: None Neurological History: Reports: None Psychiatric History: Reports: OCD, Panic Attack, 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) 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 Endocrine/Metabolic History: Reports: None Hematologic History: Reports: Anemia Immunologic History: Reports: None Oncologic (Cancer) History: Reports: None Dermatologic History: Reports: 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) Other Dermatologic History: alopecia - Infectious Disease History Infectious Disease History: Reports: None - Past Surgical History Head Surgeries/Procedures: Reports: None HEENT Surgical History: Reports: None Respiratory Surgical History: Reports: None Female Surgical History: Reports: None Social & Family History - Family History Family Medical History: Noncontributory - Tobacco Use Smoking Status *Q: Former Smoker Years of Tobacco use: 4 Packs/Tins Daily: 0.5 Used Tobacco, but Quit: Yes Month/Year Tobacco Last Used: 4 Second Hand Smoke Exposure: No - Caffeine Use Caffeine Use: Reports: Soda - Recreational Drug Use Recreational Drug Use: No H&P Review of Systems - Review of Systems: Review Of Systems: See Below General: Reports: No Symptoms HEENT: Reports: No Symptoms Pulmonary: Reports: No Symptoms Cardiovascular: Reports: No Symptoms Gastrointestinal: Reports: No Symptoms Genitourinary: Reports: No Symptoms Musculoskeletal: Reports: No Symptoms L&D Exam - Exam Exam: See Below - Vital Signs Vital Signs: Last Vital Signs Temp 36.2 C 05/11/19 20:00 Pulse 72 05/11/19 08:30 Resp 16 05/11/19 20:00 BP 112/69 05/11/19 20:00 Pulse Ox 99 05/11/19 20:00 Weight: 84.368 kg - OB Specific Contraction Duration (sec): 60-80 Contraction Frequency (min): 1.5-260-70 Contraction Intensity: Strong Movement: Active Heart Tones: Present Heart Tones per Min: 135 Heart Rate (FHR) Variability: Moderate (6-25 bmp) Presentation: Vertex - King Score King Score Cervix Position: Posterior King Score Consistency: Soft King Score Dilation: 3-4 cm King Score 's Station: -2 - Exam General: Alert, Oriented Lungs: Clear to Auscultation, Normal Respiratory Effort Cardiovascular: Regular Rate, Regular Rhythm. No: Systolic Murmur, Diastolic Murmur Extremities: No Pedal Edema Skin: Warm, Dry, Intact - Patient Data Lab Results Last 24 hrs: Laboratory Results - last 24 hr 05/11/19 Range/Units 01:00 WBC 11.4 H (5.0-10.0) 10^3/uL RBC 3.80 L (4.2-5.4) 10^6/uL Hgb 12.3 (12.0-16.0) g/dL Hct 36.0 L (37.0-47.0) % MCV 94.7 (80-100) fL MCH 32.4 (27.0-34.0) pg MCHC 34.2 (33.0-35.0) g/dL Plt Count 188 (150-450) 10^3/uL Result Diagrams: 05/11/19 01:00 - Problem List (1) care in third trimester SNOMED Code(s): 846615554, 26316131, 76219389, 527690224, 026723969 ICD Code: Z34.93 - ENCNTR FOR SUPRVSN OF NORMAL PREG, UNSP, THIRD TRIMESTER Status: Acute Current Visit: Yes (2) History of miscarriage, currently SNOMED Code(s): 171933235, 463639871 ICD Code: O09.299 - SUPRVSN OF PREG W POOR REPRODCTV OR OBSTET HISTORY, UNSP TRI Status: Acute Current Visit: Yes (3) History of precipitous delivery SNOMED Code(s): 287632271 ICD Code: Z87.59 - PERSONAL HISTORY OF COMP OF PREG, CHLDBRTH AND THE PUERP Status: Acute Current Visit: Yes (4) History of delivery, currently in third trimester SNOMED Code(s): 88006928, 29855267 ICD Code: O09.213 - SUPRVSN OF PREG W HISTORY OF PRE-TERM LABOR, THIRD TRIMESTER Status: Acute Current Visit: Yes Problem List Initiated/Reviewed/Updated: Yes Orders Last 24hrs: Active Orders 24 hr Category Date Time Status Patient Status [ADT] Routine ADT 05/11/19 00:56 Active Monitoring [RC] PER UNIT ROUTINE Care 05/11/19 00:59 Inactive Notify Provider Vital Signs OB [RC] ASDIRECTED Care 05/11/19 00:56 Active POC Labs [RC] ASDIRECTED Care 05/11/19 00:56 Inactive Pump Management, Intrathecal [RC] ASDIRECTED Care 05/11/19 00:56 Inactive Up ad Hannah [RC] ASDIRECTED Care 05/11/19 00:56 Active Vital Signs [RC] 08,20 Care 05/11/19 06:48 Active Consult to Fruit Harvest Machine Operator [CONS] Routine Cons 05/11/19 06:48 Active Regular Diet [DIET] Diet 05/11/19 Breakfast Active Acetaminophen [Tylenol] Med 05/11/19 00:56 Active 650 mg PO Q4H PRN Benzocaine/Menthol [Dermoplast Pain Relief [place]] Med 05/11/19 06:48 Active See Dose Instructions TOP Q4H PRN Carboprost Tromethamine [Hemabate DS] Med 05/11/19 00:56 Active 250 mcg IM ASDIRECTED PRN Docusate Sodium [Colace] Med 05/11/19 06:48 Active 100 mg PO BID PRN Ibuprofen [Motrin] Med 05/11/19 06:48 Active 800 mg PO Q8H PRN Methylergonovine [Methergine] Med 05/11/19 00:56 Active 0.2 mg IM ASDIRECTED PRN Ondansetron [Zofran] Med 05/11/19 00:56 Active 4 mg IV Q4H PRN Oxytocin [Pitocin] Med 05/11/19 06:48 Active 10 unit IM ONETIME PRN Oxytocin/Normal Saline [Pitocin in NS 30 UNIT/500 ML] Med 05/11/19 01:00 Active 30 unit in 500 ml IV TITRATE Vit with Ca/FA/Iron [ Plus Iron] Med 05/11/19 09:00 Active 1 each PO DAILY Simethicone Med 05/11/19 06:48 Active 80 mg PO Q4H PRN Sodium Chloride 0.9% [Saline Flush] Med 05/11/19 00:56 Active 10 ml FLUSH ASDIRECTED PRN Tranexamic Acid [Cyklokapron] 1,000 mg Med 05/11/19 00:56 Active Sodium Chloride 0.9% [Normal Saline] 100 ml IV ONETIME hydrOXYzine HCl [Atarax] Med 05/11/19 01:20 Active 50 mg PO ONETIME PRN miSOPROStoL [Cytotec] Med 05/11/19 00:56 Active 800 mcg RECTAL ASDIRECTED PRN Assess Lochia [WOMSER] Per Unit Routine Oth 05/11/19 06:48 Ordered Assess Uterine Involution [WOMSER] Per Unit Routine Oth 05/11/19 06:48 Ordered Breast Pump [WOMSER] Per Unit Routine Oth 05/11/19 06:48 Ordered Ice Therapy [OM.PC] Per Unit Routine Oth 05/11/19 06:48 Ordered Perineal Care [OM.PC] Per Unit Routine Oth 05/11/19 06:48 Ordered Saline Lock Insert [OM.PC] Routine Oth 05/11/19 00:56 Ordered Saline Lock Insert [OM.PC] Urgent Oth 05/11/19 06:48 Ordered Sitz Bath [OM.PC] Per Unit Routine Oth 05/11/19 06:48 Ordered Resuscitation Status Routine Resus Stat 05/11/19 00:56 Ordered Medication Orders Acetaminophen (Tylenol) 650 mg PO Q4H PRN PRN Reason: Pain (Mild 1-3) and fever Last Admin: 05/11/19 17:26 Dose: 650 mg Benzocaine/Menthol (Dermoplast Pain Relief [place]) 0 gm TOP Q4H PRN PRN Reason: Perineal comfort measures Carboprost Tromethamine (Hemabate Ds) 250 mcg IM ASDIRECTED PRN PRN Reason: HEMORRHAGE Docusate Sodium (Colace) 100 mg PO BID PRN PRN Reason: Constipation Last Admin: 05/11/19 17:26 Dose: 100 mg Hydroxyzine HCl (Atarax) 50 mg PO ONETIME PRN PRN Reason: Anxiety Tranexamic Acid 1,000 mg/ (Sodium Chloride) 110 mls @ 660 mls/hr IV ONETIME PRN PRN Reason: Bleeding Oxytocin/Sodium Chloride (Pitocin In Ns 30 Unit/500 Ml) 30 unit in 500 mls @ 2 mls/hr IV TITRATE ANTONIA; Protocol Last Titration: 05/11/19 09:15 Dose: 0 mls/hr Titration: 05/11/19 08:30 Dose: 125 mls/hr Titration: 05/11/19 07:50 Dose: 250 mls/hr Titration: 05/11/19 06:40 Dose: 500 mls/hr Titration: 05/11/19 06:39 Dose: 999 mls/hr Titration: 05/11/19 03:50 Dose: 10 mls/hr Titration: 05/11/19 03:12 Dose: 8 mls/hr Titration: 05/11/19 02:34 Dose: 6 mls/hr Titration: 05/11/19 02:04 Dose: 4 mls/hr Admin: 05/11/19 01:34 Dose: 2 munits/min, 2 mls/hr Ibuprofen (Motrin) 800 mg PO Q8H PRN PRN Reason: Mild Pain or Fever Last Admin: 05/11/19 21:51 Dose: 800 mg Admin: 05/11/19 13:07 Dose: 800 mg Methylergonovine Maleate (Methergine) 0.2 mg IM ASDIRECTED PRN PRN Reason: Hemorrhage Misoprostol (Cytotec) 800 mcg RECTAL ASDIRECTED PRN PRN Reason: Hemorrhage Ondansetron HCl (Zofran) 4 mg IV Q4H PRN PRN Reason: Nausea/Vomiting Oxytocin (Pitocin) 10 unit IM ONETIME PRN PRN Reason: Bleeding Prenat Multivit/Levy/Iron/Folic Ac ( Plus Iron) 1 each PO DAILY ANTONIA Last Admin: 05/11/19 12:17 Dose: Not Given Simethicone (Simethicone) 80 mg PO Q4H PRN PRN Reason: Gas Sodium Chloride (Saline Flush) 10 ml FLUSH ASDIRECTED PRN PRN Reason: Keep Vein Open Assessment/Plan Comment:: 23-year-old at 39w4d presenting to L&D for elective IOL at term 1. Initiate routine intrapartum orders 2. Pitocin per protocol for induction 3. AROM when able 4. Expectant management. Anticipate Geeta Ambriz MD
--- NOTE | 2019-05-12 02:33 | PCM.DEL ---
L & D Note - General Info Date of Service: 05/11/19 Mother's Due Date: 05/14/19 - Delivery Note Labor: Augmented by ARM, Induced by Oxytocin Delivery Outcome: Livebirth Delivery Method: Spontaneous Vaginal Delivery-Single Delivery Mode: Spontaneous Presentation: Vertex Nuchal Cord: None Anesthesia Type: Nitrous Oxide Amniotic Fluid Description: Clear Episiotomy Type: None Placenta: Intact, Spontaneous Cord: 3 Vessels Estimated Blood Loss: 200 Resuscitation Needed: Yes : Suctioned, Bulb Syringe, Stimulated, Warmed, Friendly Used, Warmer Used Provider: Geeta Ambriz Score 1 min: 7 Score 5 min: 8 Delivery Comments (Free Text/Narrative):: Patient presented to L&D for IOL. She was noted to be 4 cm dilated but ballotable so pitocin for induction was started around 0130. Patient rapidly progress through the 1st stage of labor, using nitrous oxide for pain control. She started feeling pressure around 0610 and was noted to be 8 cm dilated with a bulging bag. AROM was performed at 0630 for a small amount of clear fluid. Patient rapidly progressed to complete dilation and delivered a viable male after 2 pushes at 0635. Apgars were noted to be 7 and 8 at 1 and 5 minutes respectively. weight is 7 pounds, 10 ounces. Baby was initially placed on mother's chest but needed some stimulation. The umbilical cord was clamped x2 and cut by Jef (baby's father). Baby was taken to the warmer. Cord blood was collected. The placenta delivered about 3 minutes later spontaneously. It was noted to be intact. Bleeding was initially brisk and uterus noted to be boggy so pitocin was bolused. Uterus responded within 30 seconds. Perineum was inspected and noted to be intact. Uterus was noted to be firm, and bleeding was appropriate. Patient tolerated the procedure well, and there were no immediate complications. Induction Criteria - King Score King Score Dilation: 3-4 cm King Score Effacement: 60-70% King Score Infant's Station: -2 King Score Consistency: Soft King Score Cervix Position: Midposition King Score Total: 8 King Score Presenting Part: Reports: Cephalic - Induction Gestational Age >/= 39 wks: Yes Estimated Pelvis: Reports: Adequate Reassuring Monitoring Strip: Yes Absence of Tachy Systole: Yes - Augmentation Estimated Pelvis: Reports: Adequate Weight Estimated:: Reports: AGA Reassuring Monitoring Strip: Yes Absence of Tachy Systole: Yes - General Info Date of Service: 05/11/19 - Patient Data Vitals - Most Recent: Last Vital Signs Temp 36.2 C 05/11/19 20:00 Pulse 72 05/11/19 08:30 Resp 16 05/11/19 20:00 BP 112/69 05/11/19 20:00 Pulse Ox 99 05/11/19 20:00 Weight - Most Recent: 84.368 kg I&O - Last 24 Hours: Intake & Output 05/11/19 05/11/19 05/12/19 14:59 22:59 06:59 Intake Total 30 Output Total 1000 Balance 30 -1000 Med Orders - Current: Current Medications Acetaminophen (Tylenol) 650 mg PO Q4H PRN PRN Reason: Pain (Mild 1-3) and fever Last Admin: 05/11/19 17:26 Dose: 650 mg Benzocaine/Menthol (Dermoplast Pain Relief [place]) 0 gm TOP Q4H PRN PRN Reason: Perineal comfort measures Carboprost Tromethamine (Hemabate Ds) 250 mcg IM ASDIRECTED PRN PRN Reason: HEMORRHAGE Docusate Sodium (Colace) 100 mg PO BID PRN PRN Reason: Constipation Last Admin: 05/11/19 17:26 Dose: 100 mg Hydroxyzine HCl (Atarax) 50 mg PO ONETIME PRN PRN Reason: Anxiety Tranexamic Acid 1,000 mg/ (Sodium Chloride) 110 mls @ 660 mls/hr IV ONETIME PRN PRN Reason: Bleeding Oxytocin/Sodium Chloride (Pitocin In Ns 30 Unit/500 Ml) 30 unit in 500 mls @ 2 mls/hr IV TITRATE ANTONIA; Protocol Last Titration: 05/11/19 09:15 Dose: Infused Ibuprofen (Motrin) 800 mg PO Q8H PRN PRN Reason: Mild Pain or Fever Last Admin: 05/11/19 21:51 Dose: 800 mg Methylergonovine Maleate (Methergine) 0.2 mg IM ASDIRECTED PRN PRN Reason: Hemorrhage Misoprostol (Cytotec) 800 mcg RECTAL ASDIRECTED PRN PRN Reason: Hemorrhage Ondansetron HCl (Zofran) 4 mg IV Q4H PRN PRN Reason: Nausea/Vomiting Oxytocin (Pitocin) 10 unit IM ONETIME PRN PRN Reason: Bleeding Prenat Multivit/[place]/Iron/Folic Ac ( Plus Iron) 1 each PO DAILY [facility] Last Admin: 05/11/19 12:17 Dose: Not Given Simethicone (Simethicone) 80 mg PO Q4H PRN PRN Reason: Gas Sodium Chloride (Saline Flush) 10 ml FLUSH ASDIRECTED PRN PRN Reason: Keep Vein Open Discontinued Medications Fentanyl (Sublimaze) 50 mcg IVPUSH Q1H PRN PRN Reason: Pain (moderate 4-6) Lactated Ringer's (Ringers, Lactated) 500 mls @ 999 mls/hr IV .BOLUS ONE Stop: 05/11/19 01:26 Last Admin: 05/11/19 12:17 Dose: Not Given Lactated Ringer's (Ringers, Lactated) 1,000 mls @ 125 mls/hr IV ASDIRECTED [facility] Last Admin: 05/11/19 01:34 Dose: 125 mls/hr Lidocaine HCl (Xylocaine-Mpf 1%) 30 ml INJECT ASDIRECTED PRN PRN Reason: Perineal Repair Misoprostol (Cytotec) 25 mcg VAG Q4H PRN PRN Reason: cervical ripening Nalbuphine HCl (Nubain) 20 mg IM Q3H PRN PRN Reason: Pain Nalbuphine HCl (Nubain) 10 mg IV Q3H PRN PRN Reason: Pain - Exam General: Alert, Oriented Lungs: Clear to Auscultation, Normal Respiratory Effort Cardiovascular: Regular Rate, Regular Rhythm, No Murmurs GI/Abdominal Exam: Soft, Non-Tender Extremities: No Pedal Edema Skin: Warm, Dry, Intact - Problem List & Annotations (1) care in third trimester SNOMED Code(s): 197951083, 48098068, 14651024, 629262532, 961388117 Code(s): Z34.93 - ENCNTR FOR SUPRVSN OF NORMAL PREG, UNSP, THIRD TRIMESTER Status: Acute Current Visit: Yes (2) History of miscarriage, currently SNOMED Code(s): 128431967, 220460745 Code(s): O09.299 - SUPRVSN OF PREG W POOR REPRODCTV OR OBSTET HISTORY, UNSP TRI Status: Acute Current Visit: Yes (3) History of precipitous delivery SNOMED Code(s): 461297475 Code(s): Z87.59 - PERSONAL HISTORY OF COMP OF PREG, CHLDBRTH AND THE PUERP Status: Acute Current Visit: Yes (4) History of delivery, currently in third trimester SNOMED Code(s): 72262139, 09025205 Code(s): O09.213 - SUPRVSN OF PREG W HISTORY OF PRE-TERM LABOR, THIRD TRIMESTER Status: Acute Current Visit: Yes (5) (normal spontaneous vaginal delivery) SNOMED Code(s): 09466591, 281946103 Code(s): O80 - ENCOUNTER FOR FULL-TERM UNCOMPLICATED DELIVERY Status: Acute Current Visit: Yes - Problem List Review Problem List Initiated/Reviewed/Updated: Yes - My Orders Last 24 Hours: My Active Orders 05/11/19 06:48 Vital Signs [RC] 08,20 Consult to Software Support Technician [CONS] Routine Benzocaine/Menthol [Dermoplast Pain Relief [place]] See Dose Instructions TOP Q4H PRN Docusate Sodium [Colace] 100 mg PO BID PRN Ibuprofen [Motrin] 800 mg PO Q8H PRN Oxytocin [Pitocin] 10 unit IM ONETIME PRN Simethicone 80 mg PO Q4H PRN Assess Lochia [WOMSER] Per Unit Routine Assess Uterine Involution [WOMSER] Per Unit Routine Breast Pump [WOMSER] Per Unit Routine Ice Therapy [OM.PC] Per Unit Routine Perineal Care [OM.PC] Per Unit Routine Saline Lock Insert [OM.PC] Urgent Sitz Bath [OM.PC] Per Unit Routine 05/11/19 09:00 Vit with Ca/FA/Iron [ Plus Iron] 1 each PO DAILY 05/11/19 Breakfast Regular Diet [DIET] - Assessment Assessment:: 23-year-old now status post at 39w4d - Plan Plan:: 1. Initiate routine orders 2. Plans to breastfeed 3. Anticipate discharge 05/13/19 Geeta Ambriz MD
[2019-05-12] MEDS: Ibuprofen 800 MG Tab PO PRN ×2 (06:15→17:00)
[2019-05-12] MEDS: Docusate Sodium 100 MG Cap PO PRN ×2 (09:40→23:46)
[2019-05-12] MEDS: Prenatal Multivitamin with Calcium/Folic Acid/Iron Tab PO SCH (09:40)
[2019-05-12] MEDS: Acetaminophen 325 MG Tab PO PRN (23:44)
[2019-05-13] MEDS: Ibuprofen 800 MG Tab PO PRN (04:21)
[2019-05-13 07:30] VITALS: BP 124/66; PULSE 77
[2019-05-13] MEDS: Docusate Sodium 100 MG Cap PO PRN (09:18)
[2019-05-13] MEDS: Prenatal Multivitamin with Calcium/Folic Acid/Iron Tab PO SCH (09:18)
--- NOTE | 2019-05-14 22:45 | PCM.PNPP ---
- General Info Date of Service: 05/12/19 Subjective Update: PPD#1 status post . Doing well. Tolerating a general diet. No dizziness, lightheadedness, fever or chills. No nausea or vomiting. Urinating and passing gas. is going well now--has some issues with latch initially. Vaginal bleeding has decreased already. Some cramping with nursing. Some back pain. No concerns per patient or per nursing staff. Functional Status: Reports: Pain Controlled, Tolerating Diet, Ambulating, Urinating. Denies: New Symptoms - Review of Systems General: Reports: No Symptoms HEENT: Reports: No Symptoms Pulmonary: Reports: No Symptoms Cardiovascular: Reports: No Symptoms Gastrointestinal: Reports: Other (Mild abdominal cramping) Genitourinary: Reports: No Symptoms Musculoskeletal: Reports: Back Pain Skin: Reports: No Symptoms Neurological: Reports: No Symptoms - General Info Date of Service: 05/12/19 - Patient Data Vital Signs - Most Recent: Last Vital Signs Temp 36.5 C 05/13/19 07:29 Pulse 77 05/13/19 07:29 Resp 18 05/13/19 07:29 BP 124/66 05/13/19 07:29 Pulse Ox 100 05/13/19 07:29 Weight - Most Recent: 84.368 kg Med Orders - Current: Current Medications Discontinued Medications Acetaminophen (Tylenol) 650 mg PO Q4H PRN PRN Reason: Pain (Mild 1-3) and fever Last Admin: 05/12/19 23:44 Dose: 650 mg Benzocaine/Menthol (Dermoplast Pain Relief [place]) 0 gm TOP Q4H PRN PRN Reason: Perineal comfort measures Carboprost Tromethamine (Hemabate Ds) 250 mcg IM ASDIRECTED PRN PRN Reason: HEMORRHAGE Docusate Sodium (Colace) 100 mg PO BID PRN PRN Reason: Constipation Last Admin: 05/13/19 09:18 Dose: 100 mg Fentanyl (Sublimaze) 50 mcg IVPUSH Q1H PRN PRN Reason: Pain (moderate 4-6) Hydroxyzine HCl (Atarax) 50 mg PO ONETIME PRN PRN Reason: Anxiety Lactated Ringer's (Ringers, Lactated) 500 mls @ 999 mls/hr IV .BOLUS ONE Stop: 05/11/19 01:26 Last Admin: 05/11/19 12:17 Dose: Not Given Lactated Ringer's (Ringers, Lactated) 1,000 mls @ 125 mls/hr IV ASDIRECTED [facility] Last Admin: 05/11/19 01:34 Dose: 125 mls/hr Tranexamic Acid 1,000 mg/ (Sodium Chloride) 110 mls @ 660 mls/hr IV ONETIME PRN PRN Reason: Bleeding Oxytocin/Sodium Chloride (Pitocin In Ns 30 Unit/500 Ml) 30 unit in 500 mls @ 2 mls/hr IV TITRATE ANTONIA; Protocol Last Titration: 05/11/19 09:15 Dose: Infused Ibuprofen (Motrin) 800 mg PO Q8H PRN PRN Reason: Mild Pain or Fever Last Admin: 05/13/19 04:21 Dose: 800 mg Lidocaine HCl (Xylocaine-Mpf 1%) 30 ml INJECT ASDIRECTED PRN PRN Reason: Perineal Repair Methylergonovine Maleate (Methergine) 0.2 mg IM ASDIRECTED PRN PRN Reason: Hemorrhage Misoprostol (Cytotec) 800 mcg RECTAL ASDIRECTED PRN PRN Reason: Hemorrhage Misoprostol (Cytotec) 25 mcg VAG Q4H PRN PRN Reason: cervical ripening Nalbuphine HCl (Nubain) 20 mg IM Q3H PRN PRN Reason: Pain Nalbuphine HCl (Nubain) 10 mg IV Q3H PRN PRN Reason: Pain Ondansetron HCl (Zofran) 4 mg IV Q4H PRN PRN Reason: Nausea/Vomiting Oxytocin (Pitocin) 10 unit IM ONETIME PRN PRN Reason: Bleeding Prenat Multivit/[place]/Iron/Folic Ac ( Plus Iron) 1 each PO DAILY [facility] Last Admin: 05/13/19 09:18 Dose: 1 each Simethicone (Simethicone) 80 mg PO Q4H PRN PRN Reason: Gas Sodium Chloride (Saline Flush) 10 ml FLUSH ASDIRECTED PRN PRN Reason: Keep Vein Open - Infant Interaction Infant Disposition, : in Room with Family Infant Interaction: Holding Infant Infant Feeding: Breastfed ; Nursed Well Support Person: Significant Other - Recovery Exam Fundal Tone: Firm Fundal Level: 1 Fingerbreadths Below Umbilicus Fundal Placement: Midline Lochia Amount: Small Lochia Color: Rubra/Red Perineum Description: Intact, Minimal Bruising/Swelling Episiotomy/Laceration: None - Exam General: Alert, Oriented Lungs: Clear to Auscultation, Normal Respiratory Effort Cardiovascular: Regular Rate, Regular Rhythm, No Murmurs GI/Abdominal Exam: Soft, Non-Tender Extremities: Pedal Edema (1+ bilaterally) Skin: Warm, Dry, Intact - Problem List & Annotations (1) care in third trimester SNOMED Code(s): 188816997, 32963292, 32370606, 091276307, 230931451 Code(s): Z34.93 - ENCNTR FOR SUPRVSN OF NORMAL PREG, UNSP, THIRD TRIMESTER Status: Acute (2) History of miscarriage, currently SNOMED Code(s): 079083705, 763685327 Code(s): O09.299 - SUPRVSN OF PREG W POOR REPRODCTV OR OBSTET HISTORY, UNSP TRI Status: Acute (3) History of precipitous delivery SNOMED Code(s): 819141308 Code(s): Z87.59 - PERSONAL HISTORY OF COMP OF PREG, CHLDBRTH AND THE PUERP Status: Acute (4) History of delivery, currently in third trimester SNOMED Code(s): 47891110, 84027504 Code(s): O09.213 - SUPRVSN OF PREG W HISTORY OF PRE-TERM LABOR, THIRD TRIMESTER Status: Acute (5) (normal spontaneous vaginal delivery) SNOMED Code(s): 65880972, 567167791 Code(s): O80 - ENCOUNTER FOR FULL-TERM UNCOMPLICATED DELIVERY Status: Acute - Problem List Review Problem List Initiated/Reviewed/Updated: Yes - Assessment Assessment:: 23-year-old now PPD#1 status post at 39w4d - Plan Plan:: 1. Continue routine orders 2. 3. Anticipate discharge 05/13/19 Geeta Ambriz MD
--- NOTE | 2019-05-14 22:53 | PCM.DCSUM1 ---
Discharge Summary - Hospital Course Free Text/Narrative:: 23-year-old , PPD#2 status post at 39w4d Diagnosis: Stroke: No - Discharge Data Discharge Date: 05/13/19 Discharge Disposition: Home, Self-Care 01 Condition: Good - Referral to Home Health Primary Care Physician: Francine Ambriz MD - Discharge Diagnosis/Problem(s) (1) care in third trimester SNOMED Code(s): 660378668, 25580647, 00780577, 982593399, 723594131 ICD Code: Z34.93 - ENCNTR FOR SUPRVSN OF NORMAL PREG, UNSP, THIRD TRIMESTER Status: Acute (2) History of miscarriage, currently SNOMED Code(s): 271408055, 504718892 ICD Code: O09.299 - SUPRVSN OF PREG W POOR REPRODCTV OR OBSTET HISTORY, UNSP TRI Status: Acute (3) History of precipitous delivery SNOMED Code(s): 259747029 ICD Code: Z87.59 - PERSONAL HISTORY OF COMP OF PREG, CHLDBRTH AND THE PUERP Status: Acute (4) History of delivery, currently in third trimester SNOMED Code(s): 26766571, 12084551 ICD Code: O09.213 - SUPRVSN OF PREG W HISTORY OF PRE-TERM LABOR, THIRD TRIMESTER Status: Acute (5) (normal spontaneous vaginal delivery) SNOMED Code(s): 49239856, 208583186 ICD Code: O80 - ENCOUNTER FOR FULL-TERM UNCOMPLICATED DELIVERY Status: Acute - Patient Summary/Data Operative Procedure(s) Performed: None Complications: None Consults: Consultations 05/11/19 06:48 Consult to Network Management Specialist [CONS] Routine Labs Pending at D/C: None Recommended Follow-up Testing/Procedures: None Planned Operative Procedure(s) after DC: None Hospital Course: Please see subjective section - Patient Instructions Diet: Usual Diet as Tolerated Activity: As Tolerated, No Lifting Over 20 Pounds Driving: May Drive Today Showering/Bathing: May Shower Notify Provider of: Fever, Increased Pain, Nausea and/or Vomiting - Discharge Plan *PRESCRIPTION DRUG MONITORING PROGRAM REVIEWED*: Not Applicable *COPY OF PRESCRIPTION DRUG MONITORING REPORT IN PATIENT LEONEL: Not Applicable Home Medications: Home Meds Pnv95/Iron Fum/Folic Acid [ [place]] 1 tab PO DAILY 07/08/16 [History] Ferrous Sulfate [Iron] 325 mg PO DAILY 12/09/16 [History] Acetaminophen [Tylenol] 650 mg PO Q4H PRN #0 tablet 12/11/16 [Rx] Escitalopram [Lexapro] 20 mg PO DAILY 04/25/19 [History] Docusate Sodium [Colace] 100 mg PO BID PRN cap 05/13/19 [Rx] Ibuprofen [Motrin] 800 mg PO Q8H PRN tablet 05/13/19 [Rx] Patient Handouts: Baby Blues, Vaginal Delivery, Care After Referrals: Geeta Ambriz MD [Primary Care Provider] - (6-8 weeks for visit) - Discharge Summary/Plan Comment DC Time >30 min.: No Discharge Summary/Plan Comment: Discharge home today with follow-up in 6-8 weeks for routine visit. Reasons to return to clinic or present to the ED were reviewed. Information for and Baby and I were provided. Routine discharge information provided by nursing staff. - General Info Date of Service: 05/13/19 Subjective Update: PPD#2. Doing well. Cramping and back pain improved. Has passed a few ping pong ball sized clots but otherwise vaginal bleeding has decreased. No nausea, vomiting, fever, chills, dizziness and lightheadedness. is going well. Tolerating a general diet. Urinating without difficulty. No concerns per patient or per nursing staff. Functional Status: Reports: Pain Controlled, Tolerating Diet, Ambulating, Urinating. Denies: New Symptoms - Review of Systems General: Reports: No Symptoms HEENT: Reports: No Symptoms Pulmonary: Reports: No Symptoms Cardiovascular: Reports: No Symptoms Gastrointestinal: Reports: No Symptoms Genitourinary: Reports: No Symptoms Musculoskeletal: Reports: Back Pain Skin: Reports: No Symptoms - Patient Data Vitals - Most Recent: Last Vital Signs Temp 36.5 C 05/13/19 07:29 Pulse 77 05/13/19 07:29 Resp 18 05/13/19 07:29 BP 124/66 05/13/19 07:29 Pulse Ox 100 05/13/19 07:29 Weight - Most Recent: 84.368 kg Med Orders - Current: Current Medications Discontinued Medications Acetaminophen (Tylenol) 650 mg PO Q4H PRN PRN Reason: Pain (Mild 1-3) and fever Last Admin: 05/12/19 23:44 Dose: 650 mg Benzocaine/Menthol (Dermoplast Pain Relief [place]) 0 gm TOP Q4H PRN PRN Reason: Perineal comfort measures Carboprost Tromethamine (Hemabate Ds) 250 mcg IM ASDIRECTED PRN PRN Reason: HEMORRHAGE Docusate Sodium (Colace) 100 mg PO BID PRN PRN Reason: Constipation Last Admin: 05/13/19 09:18 Dose: 100 mg Fentanyl (Sublimaze) 50 mcg IVPUSH Q1H PRN PRN Reason: Pain (moderate 4-6) Hydroxyzine HCl (Atarax) 50 mg PO ONETIME PRN PRN Reason: Anxiety Lactated Ringer's (Ringers, Lactated) 500 mls @ 999 mls/hr IV .BOLUS ONE Stop: 05/11/19 01:26 Last Admin: 05/11/19 12:17 Dose: Not Given Lactated Ringer's (Ringers, Lactated) 1,000 mls @ 125 mls/hr IV ASDIRECTED [facility] Last Admin: 05/11/19 01:34 Dose: 125 mls/hr Tranexamic Acid 1,000 mg/ (Sodium Chloride) 110 mls @ 660 mls/hr IV ONETIME PRN PRN Reason: Bleeding Oxytocin/Sodium Chloride (Pitocin In Ns 30 Unit/500 Ml) 30 unit in 500 mls @ 2 mls/hr IV TITRATE ANTONIA; Protocol Last Titration: 05/11/19 09:15 Dose: Infused Ibuprofen (Motrin) 800 mg PO Q8H PRN PRN Reason: Mild Pain or Fever Last Admin: 05/13/19 04:21 Dose: 800 mg Lidocaine HCl (Xylocaine-Mpf 1%) 30 ml INJECT ASDIRECTED PRN PRN Reason: Perineal Repair Methylergonovine Maleate (Methergine) 0.2 mg IM ASDIRECTED PRN PRN Reason: Hemorrhage Misoprostol (Cytotec) 800 mcg RECTAL ASDIRECTED PRN PRN Reason: Hemorrhage Misoprostol (Cytotec) 25 mcg VAG Q4H PRN PRN Reason: cervical ripening Nalbuphine HCl (Nubain) 20 mg IM Q3H PRN PRN Reason: Pain Nalbuphine HCl (Nubain) 10 mg IV Q3H PRN PRN Reason: Pain Ondansetron HCl (Zofran) 4 mg IV Q4H PRN PRN Reason: Nausea/Vomiting Oxytocin (Pitocin) 10 unit IM ONETIME PRN PRN Reason: Bleeding Prenat Multivit/[place]/Iron/Folic Ac ( Plus Iron) 1 each PO DAILY [facility] Last Admin: 05/13/19 09:18 Dose: 1 each Simethicone (Simethicone) 80 mg PO Q4H PRN PRN Reason: Gas Sodium Chloride (Saline Flush) 10 ml FLUSH ASDIRECTED PRN PRN Reason: Keep Vein Open - Exam General: Reports: Alert, Oriented Lungs: Reports: Clear to Auscultation, Normal Respiratory Effort Cardiovascular: Reports: Regular Rate, Regular Rhythm, No Murmurs GI/Abdominal Exam: Soft, Non-Tender Extremities: Pedal Edema (1+ bilaterally) Skin: Reports: Warm, Dry, Intact
== END 2019-05-13 11:10 | disposition home or self-care (01) | DRG 807 ==
LOC: DL.OB 00:32 → OBSVTOIN 06:35 → DL.OB 06:35 → DL.MS 09:10
PROVIDERS: ADMIT Family Medicine; ATTEND Family Medicine
PROC: 10E0XZZ Delivery of Products of Conception, External Approach (ICD-10-PCS; principal; 2019-05-11)
PROC: 10907ZC Drainage of Amniotic Fluid, Therapeutic from Products of Conception, Via Natural or Artificial Opening (ICD-10-PCS; 2019-05-11)
PROC: 3E033VJ Introduction of Other Hormone into Peripheral Vein, Percutaneous Approach (ICD-10-PCS; 2019-05-11)
DX: O99.013 Anemia complicating pregnancy, third trimester (principal); O99.02 Anemia complicating childbirth; O99.343 Other mental disorders complicating pregnancy, third trimester; F60.5 Obsessive-compulsive personality disorder; Z37.0 Single live birth; O99.283 Endocrine, nutritional and metabolic diseases complicating pregnancy, third trimester; E73.9 Lactose intolerance, unspecified; O99.513 Diseases of the respiratory system complicating pregnancy, third trimester; J45.30 Mild persistent asthma, uncomplicated; D64.9 Anemia, unspecified; Z79.899 Other long term (current) drug therapy; O99.52 Diseases of the respiratory system complicating childbirth; J45.909 Unspecified asthma, uncomplicated; O99.344 Other mental disorders complicating childbirth; F41.0 Panic disorder [episodic paroxysmal anxiety]; F42.9 Obsessive-compulsive disorder, unspecified; Z3A.39 39 weeks gestation of pregnancy; Z88.0 Allergy status to penicillin; Z91.011 Allergy to milk products; Z88.8 Allergy status to other drugs, medicaments and biological substances; Z87.891 Personal history of nicotine dependence
CPT/HCPCS: 36415; 59409; 85027; A9270-GY; J2590; J7120

== ENCOUNTER 2022-07-15 19:24 | Emergency (ER) | payer MEDICAID ==
[2022-07-15] MEDS ORDERED: Sodium Chloride 0.9% 10 ML Syringe FLUSH PRN (20:37)
[2022-07-15 20:45] VITALS: BP 121/89; PULSE 88
[2022-07-15 21:32] LABS: ANION GAP 13.6 mEq/L (7-13)
[2022-07-15 21:56] LABS: CORONAVIRUS COVID-19 NAA NEGATIVE (NEGATIVE); RESPIRATORY SYNCYTIAL VIR NAA NEGATIVE (NEGATIVE)
== END 2022-07-15 22:35 | disposition home or self-care (01) ==
LOC: DL.ED 19:24
DX: K52.9 Noninfective gastroenteritis and colitis, unspecified (principal); Z88.8 Allergy status to other drugs, medicaments and biological substances; Z88.0 Allergy status to penicillin; Z91.011 Allergy to milk products; Z79.899 Other long term (current) drug therapy; Z72.0 Tobacco use; Z20.822 Contact with and (suspected) exposure to COVID-19
CPT/HCPCS: 0241U; 36415; 80053; 81001; 81025; 82150; 83605; 83690; 83735; 85025; 86140; 99283; 99284; J3490

== ENCOUNTER 2022-09-19 09:24 | Emergency (ER) | payer MEDICAID ==
[2022-09-19 09:58] VITALS: BP 119/83; PULSE 99
[2022-09-19] MEDS ORDERED: Dexamethasone 4 MG/ML SDV IM ONE (09:59)
== END 2022-09-19 10:45 | disposition home or self-care (01) ==
LOC: DL.ED 09:24
DX: S16.1XXA Strain of muscle, fascia and tendon at neck level, initial encounter (principal); M62.838 Other muscle spasm; Z88.0 Allergy status to penicillin; Z91.011 Allergy to milk products; Z88.8 Allergy status to other drugs, medicaments and biological substances
CPT/HCPCS: 96372; 99283; J1100; J3360

== ENCOUNTER 2022-12-23 09:05 | Emergency (ER) | payer MEDICAID ==
[2022-12-23 09:07] LABS: APPEARANCE,URINE SLIGHTLY CLOUDY (CLEAR); BILIRUBIN,URINE NEGATIVE (NEGATIVE); COLOR,URINE DARK YELLOW (YELLOW); GLUCOSE,URINE 100 (NEGATIVE); KETONES,URINE TRACE (NEGATIVE); LEUKOCYTE ESTERASE,URINE LARGE (NEGATIVE); NITRITE,URINE POSITIVE (NEGATIVE); OCCULT BLOOD,URINE SMALL (NEGATIVE); PH,URINE 5.5 (5.0-9.0); PROTEIN,URINE 100 (NEGATIVE)
[2022-12-23 09:16] LABS: BACTERIA,URINE MANY /HPF (0-FEW/HPF); EPITHELIAL CELLS,URINE FEW /HPF (NOT SEEN); WBC,URINE 30-40 /HPF (0-5/HPF)
[2022-12-23] MEDS: Take Home: Sulfamethoxazole/Trimethoprim 800-160 MG Tab, 6 Tab Pack PO ONE (09:40)
[2022-12-23 09:47] VITALS: BP 111/65; PULSE 95
== END 2022-12-23 09:41 | disposition home or self-care (01) ==
LOC: DL.ED 09:05
DX: N30.00 Acute cystitis without hematuria (principal); Z88.0 Allergy status to penicillin; Z91.011 Allergy to milk products; Z88.8 Allergy status to other drugs, medicaments and biological substances
CPT/HCPCS: 81001; 81025; 87086; 87088; 87186; 99283; A9270

== ENCOUNTER 2023-07-07 02:36 | Emergency (ER) | payer MEDICAID ==
[2023-07-07] MEDS ORDERED: Ibuprofen 600 MG Tab PO ONE (02:46)
[2023-07-07] MEDS ORDERED: Acetaminophen 325 MG Tab PO ONE (02:46)
[2023-07-07 03:03] VITALS: BP 111/61; PULSE 97
[2023-07-07] MEDS ORDERED: Take Home: Acetaminophen/HYDROcodone 325-5 MG, 5 Tab Pack PO ONE (04:19)
== END 2023-07-07 04:47 | disposition home or self-care (01) ==
LOC: DL.ED 02:36
DX: S92.145A Nondisplaced dome fracture of left talus, initial encounter for closed fracture (principal); J45.909 Unspecified asthma, uncomplicated; Z88.0 Allergy status to penicillin; Z91.011 Allergy to milk products; Z88.8 Allergy status to other drugs, medicaments and biological substances; Z79.899 Other long term (current) drug therapy; X50.1XXA Overexertion from prolonged static or awkward postures, initial encounter; Y93.01 Activity, walking, marching and hiking
CPT/HCPCS: 73610; 99282; 99283; A9270

== ENCOUNTER 2024-03-30 00:46 | Emergency (ER) | payer MEDICAID, OTHER ==
[2024-03-30] MEDS ORDERED: Sodium Chloride 0.9% 10 ML Syringe FLUSH PRN (00:58)
[2024-03-30 01:06] VITALS: BP 123/70; PULSE 98
[2024-03-30] MEDS: Ketorolac 30 MG/ML SDV IVPUSH ONE (01:09)
[2024-03-30] MEDS: Metoclopramide 10 MG/2 ML SDV IVPUSH ONE (01:09)
[2024-03-30] MEDS: diphenhydrAMINE 50 MG/ML SDV IVPUSH ONE (01:10)
== END 2024-03-30 01:40 | disposition home or self-care (01) ==
LOC: DL.ED 00:46
DX: G43.909 Migraine, unspecified, not intractable, without status migrainosus (principal); E66.9 Obesity, unspecified; F17.210 Nicotine dependence, cigarettes, uncomplicated; Z79.899 Other long term (current) drug therapy; Z88.0 Allergy status to penicillin; Z91.011 Allergy to milk products; Z88.8 Allergy status to other drugs, medicaments and biological substances; Z68.30 Body mass index [BMI] 30.0-30.9, adult
CPT/HCPCS: 96374; 96375; 99283; J1200; J1885; J2765